=== PATIENT | female | born 1955 | race Two or more races ===

== ENCOUNTER 2024-08-18 13:05 | Outpatient (AMB) | payer MEDICARE, SELFPAY ==
--- NOTE | 2024-08-18 13:25 | ORTHONT_ITS ---
Vital signs 08/18/24 13:26 Weight 85.389 kg Weight Measurement Method Standing Scale BP 145/69 H Blood Pressure Source Automatic Cuff Blood Pressure Location Right Upper Arm Position Sitting Respiration 19 Pulse 62 Pulse Source Monitor Temp 96.2 F L Temp Source Temporal Artery Scan Pulse Oximetry (%) 92 L Oxygen Delivery Method Room Air Med/Allergies Allergies & Medications Allergies No Known Allergies Allergy (Verified 08/18/24 13:26) Medication Reconciliation Unobtainable 08/18/24 [History Confirmed 08/18/24] Subjective Visit Visit for: new patient and hip (LEFT) Immunization / Flu Flu Vaccine in the Last 12 Months: Yes Flu Vaccine Exclusion Criteria: Already Received History of Present Illness Chief complaint: LEFT HIP PAIN Pain Pain level (0-10): 10 Pain duration: ALL DAY Pain location: outside (lateral) Pain quality: aching and shocking Pain timing: night, increases with activity and stairs Associated signs & symptoms: numbness Ambulatory data Ambulatory device: none Treatments Improvement with previous injections: No Improvement with PT: No Improvement with NSAIDS: no Review of Systems Review of Systems: All systems negative unless otherwise noted in HPI. Assessment and Plan Advanced Care Planning Discussion Advance care planning discussed with:: patient Office Procedures GNS Level of Care Nursing/Assessment Patient Status: Initial/New Patient Nursing Assessment/Reassesment: Medication Reconciliation, Update PMH in EMR and Vital Signs Coordination of Care: Complex Care and Chronic Disease 1-5, Education Complex Pt/Fam, Consent,records obtained, informed consent and Staff clarify orders New Patient Charge New Patient Point Assignment: 1089 New Patient Point Charge: DIRECTOR OF FINANCIAL REPORTING Level 3 ([id number]) Past Medical History Past Medical History Have you ever been diagnosed with any of the following:
--- NOTE | 2024-08-18 13:25 | PD.ORTHCLVIS ---
Vital signs 08/18/24 13:26 Weight 85.389 kg Weight Measurement Method Standing Scale BP 145/69 H Blood Pressure Source Automatic Cuff Blood Pressure Location Right Upper Arm Position Sitting Respiration 19 Pulse 62 Pulse Source Monitor Temp 96.2 F L Temp Source Temporal Artery Scan Pulse Oximetry (%) 92 L Oxygen Delivery Method Room Air Med/Allergies Allergies & Medications Allergies No Known Allergies Allergy (Verified 08/18/24 13:26) Medication Reconciliation Unobtainable 08/18/24 [History Confirmed 08/18/24] Subjective Immunization / Flu Flu Vaccine in the Last 12 Months: Yes Flu Vaccine Exclusion Criteria: No Exclusion Criteria History of Present Illness Chief complaint: bilateral hip and back pain Patient is a pleasant 68 yo femaleBilateral hip and leg pain. The pain starts in the buttocks and radiates down to the foot. There is associated numbness and tingling. She was also found to have bilateral hip arthritis. We do not have any x-rays to view today. She is using a cane and the pain is affecting her quality life and happiness Review of Systems Review of Systems: All systems negative unless otherwise noted in HPI. Exam Exam Patient is in no acute distress and is cooperative with the examination today. Breathing is nonlabored. In no respiratory distress. Patient has no paraspinal tenderness. Spinal deformity [cannot] be appreciated. The gait of the patient is [nonantalgic] Bilateral extremities were evaluated and demonstrates sensation intact to light touch. Palpable pedal pulses are present. No significant edema is present. Bilateral knees were examined and the patient has full strength and range of motion.. The right hip And left hip was examined. She has borderline positive logroll. She can try rotate to 15 degrees and externally rotates 20 degrees. She can flex to 90 Assessment and Plan Problem List (1) Bilateral hip joint arthritis: Status: Acute Plan: Patient is a 68-year-old female with bilateral hip arthritis and Spinal stenosis with a history of compression fractures. We will order new x-rays of her hips. We discussed that she likely has multifactorial causes of her pain. A lot of her pain is described as it is coming from the back with known spinal stenosis. Will also get repeat x-rays of her hips as I do not have a copy. We will discuss different treatment options depending on what this shows. While she is walking, we ever localized her pain. Her knee does go into valgus. 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
[2024-08-18 13:26] VITALS: BP 145/69; PULSE 62; RESP 19; TEMP 35.7; O2SAT 92
== END 2024-08-18 13:30 | disposition home or self-care (01) ==
PROVIDERS: PCP Physician Assistant; Referring Provider Physician Assistant; Supervising Provider Orthopaedic Surgery Adult Reconstructive Orthopaedic Surgery; Visit Provider Orthopaedic Surgery Adult Reconstructive Orthopaedic Surgery
DX: M16.0 Bilateral primary osteoarthritis of hip (principal); M48.00 Spinal stenosis, site unspecified
CPT/HCPCS: 99203; G0463

== ENCOUNTER 2024-09-15 08:22 | Outpatient (AMB) | payer MEDICARE, SELFPAY ==
--- NOTE | 2024-09-15 08:38 | PD.ORTHCLVIS ---
Vital signs 09/15/24 08:43 Height 1.52 m Height Method Stated Weight 84.368 kg Weight Measurement Method Standing Scale BMI 36.3 BP 129/73 Blood Pressure Source Automatic Cuff Blood Pressure Location Right Upper Arm Position Sitting Respiration 18 Pulse 65 Pulse Source Monitor Temp 96.4 F L Temp Source Temporal Artery Scan Pulse Oximetry (%) 93 L Oxygen Delivery Method Room Air Med/Allergies Allergies & Medications Allergies No Known Allergies Allergy (Verified 09/15/24 08:44) Medication Reconciliation Unobtainable 08/18/24 [History Confirmed 09/15/24] Subjective Visit Visit for: follow up visit and x-rays Immunization / Flu Flu Vaccine in the Last 12 Months: Yes Flu Vaccine Exclusion Criteria: Already Received History of Present Illness Chief complaint: XRAY RESULTS Patient is a pleasant 68 yo femaleBilateral hip and leg pain. The pain starts in the buttocks and radiates down to the foot. There is associated numbness and tingling. She was also found to have bilateral hip arthritis. We do not have any x-rays to view today. She is using a cane and the pain is affecting her quality life and happiness. She has multiple compression fractures and a significant lumbar stenosis and a hunchback deformity. Pain Pain level (0-10): 10 Pain duration: CONSTANT Pain location: inside (medial) and outside (lateral) Pain quality: sharp, dull and aching Pain timing: night and increases with activity Associated signs & symptoms: numbness and weakness Ambulatory data Ambulatory device: cane Treatments Improvement with previous injections: No Improvement with PT: No Improvement with NSAIDS: no Review of Systems Review of Systems: All systems negative unless otherwise noted in HPI. Exam Exam Patient is in no acute distress and is cooperative with the examination today. Breathing is nonlabored. In no respiratory distress. Patient has no paraspinal tenderness. Spinal deformity [cannot] be appreciated. The gait of the patient is [nonantalgic] Bilateral extremities were evaluated and demonstrates sensation intact to light touch. Palpable pedal pulses are present. No significant edema is present. Bilateral knees were examined and the patient has full strength and range of motion.. The right hip And left hip was examined. She has borderline positive logroll. She can try rotate to 15 degrees and externally rotates 20 degrees. She can flex to 90. She has significant hip arthritis bilaterally anbd has multiple compression fractures in at least 5 lumbar vertebrae. Hip xrays dfemonstrate complete obliteration of both hip joint spaces. Assessment and Plan Problem List (1) Spinal stenosis: Status: Acute (2) Bilateral hip joint arthritis: Status: Acute Plan: Patient is a 68-year-old female with severe bilateral hip arthritis and history of multiple compression fractures. She has significant lumbar kyphosis. She describes the majority of the pain is actually coming from her back. I discussed with her that with hip replacement would help with the pain in her groin but would not Help with the pain in her back. She will need a Pain management doctor. I discussed with her that she is at high risk for complications due to her prior open heart surgery as well as her multiple fragility fractures. She is at high risk for fracture as well as medical complications during surgery and she would likely need both hips replaced as well as possibly back surgery before this. She is at high risk for dislocation given her severe lumbar kyphosis. I would recommend a pain management evaluation for now (3) Compression fracture: Status: Acute Advanced Care Planning Discussion Advance care planning discussed with:: patient Office Procedures GNS Level of Care Nursing/Assessment Patient Status: Established Patient Nursing Assessment/Reassesment: Medication Reconciliation, Update PMH in EMR and Vital Signs Coordination of Care: Complex Care and Chronic Disease 1-5, Education Complex Pt/Fam, Consent,records obtained, informed consent, 1 Ins Authorization, Results/Orders obtained and Staff clarify orders Established Patient Charge Established Patient Point Assignment: 110 Established Patient Point Charge: EP Level 3 (80-115) Past Medical History Past Medical History Have you ever been diagnosed with any of the following:
[2024-09-15 08:43] VITALS: BP 129/73; PULSE 65; RESP 18; TEMP 35.8; O2SAT 93; BMI 36.3
== END 2024-09-15 09:11 | disposition home or self-care (01) ==
PROVIDERS: PCP Physician Assistant; Referring Provider Physician Assistant; Supervising Provider Orthopaedic Surgery Adult Reconstructive Orthopaedic Surgery; Visit Provider Orthopaedic Surgery Adult Reconstructive Orthopaedic Surgery
DX: M48.061 Spinal stenosis, lumbar region without neurogenic claudication (principal); M16.0 Bilateral primary osteoarthritis of hip; S32.009D Unspecified fracture of unspecified lumbar vertebra, subsequent encounter for fracture with routine healing; X58.XXXD Exposure to other specified factors, subsequent encounter
CPT/HCPCS: 99213; G0463